=== PATIENT | female | born 1975 | race Caucasian/White ===

== ENCOUNTER → 2019-01-13 | Day surgery (SDC) | payer BC ==
[~2019-01-13] MED LIST: Bupivacaine 0.25%/EPINEPHrine 1:200,000 10 ML SDV ONE; Lactated Ringers 1,000 ML IV SCH; Midazolam 1 MG/ML 2 ML SDV IV ONE; ceFAZolin 1 GM Vial IVPUSH ONE; fentaNYL 100 MCG/2 ML SDV IV ONE
--- NOTE | 2019-01-13 17:01 | OR ---
DATE OF OPERATION: 01/13/2019 PREOPERATIVE DIAGNOSIS: UMBILICAL HERNIA AND 5 CM LIPOMA, ANTERIOR ABDOMINAL WALL, UPPER LEFT QUADRANT. POSTOPERATIVE DIAGNOSIS: UMBILICAL HERNIA AND 5 CM LIPOMA, ANTERIOR ABDOMINAL WALL, UPPER LEFT QUADRANT. SURGEON: Addy Quintero MD PROCEDURE: OPEN REPAIR OF UMBILICAL HERNIA AND EXCISION OF 5 CM LIPOMA, UPPER ABDOMINAL WALL. ANESTHESIA: General. ESTIMATED BLOOD LOSS: Minimum. SPECIMEN: Hernia contents and lipoma. INDICATIONS: This 43-year-old female has a symptomatic umbilical hernia. She also has about a 4-5 cm lump in the left upper quadrant right at the rib costal margin that bothers her. This is benign and is typical of a lipoma. DESCRIPTION OF PROCEDURE: After adequate preparation, a semicircular incision was made inferior to the umbilical hernia location. Incision was carried down through the subcutaneous fascia to the hernia site. The skin of the umbilicus was dissected free off the hernia sac and the hernia sac which contained only preperitoneal fat was then amputated. The hernia defect was closed with interrupted 0 Prolene suture. The wound was then closed with Vicryl for the subcutaneous layer and 4-0 Monocryl for the skin. A transverse incision was then made over the palpable lipoma in the left upper quadrant. This was taken down to the lipoma which easily shelled out of the subcutaneous space. The subcutaneous space was closed with 3-0 Vicryl and 4-0 Vicryl was again used to close the skin. PAYTON/SANTY /[id number]
== END ==
LOC: CC.SDS 08:31
PROVIDERS: ATTEND Surgery
DX: K42.9 Umbilical hernia without obstruction or gangrene (principal); D17.1 Benign lipomatous neoplasm of skin and subcutaneous tissue of trunk
CPT/HCPCS: 36415; 84703; J0690; J2250; J3010; J7120

== ENCOUNTER 2019-01-16 17:41 | Emergency (ER) | payer BC ==
[2019-01-16] MEDS ORDERED: Ketorolac 10 MG Tab PO ONE (17:42)
--- NOTE | 2019-01-16 18:19 | EDM.PDOC ---
ED HPI GENERAL MEDICAL PROBLEM - General Chief Complaint: Lower Extremity Injury/Pain Stated Complaint: "My right knee is swollen" Time Seen by Provider: 01/16/19 18:05 Source of Information: Reports: Patient History Limitations: Reports: No Limitations - History of Present Illness INITIAL COMMENTS - FREE TEXT/NARRATIVE: patient presents to ER with complaints of pain and swelling of right knee. She had an umbilical hernia and lipoma removal on with Dr. Quintero. Had been doing well post op. Was more fatigued yesterday, slept much of the day. This am, noted swelling around her right knee. Was in [place] for a confirmation and pain increased. Tried to walk around the store but the pain worsened. Now feels stiff and swollen and is worried about a blood clot. Has not had any trauma to her knee. Hasn't been kneeling much lately. No real physical exertion or any type of twisting injury to her knee. Has not noted any pain in her calf. No redness or warmth to knee. Onset: Gradual Duration: Hour(s): Location: Reports: Lower Extremity, Left Quality: Reports: Ache Severity: Moderate Improves with: Reports: Rest Worsens with: Reports: Movement Associated Symptoms: Denies: Fever/Chills, Shortness of Breath, Weakness - Related Data Allergies Allergy/AdvReac Type Severity Reaction Status Date / Time No Known Allergies Allergy Verified 01/12/19 16:51 Home Meds: Home Meds . [No Known Home Meds] 01/12/19 [History] Past Medical History Other Musculoskeletal History: Back surgery x3 Social & Family History - Tobacco Use Smoking Status *Q: Never Smoker Second Hand Smoke Exposure: No - Recreational Drug Use Recreational Drug Use: No Review of Systems - Review of Systems Review Of Systems: See Below Constitutional: Denies: Chills, Diaphoresis, Fever Eyes: Reports: No Symptoms Ears: Reports: No Symptoms Nose: Reports: No Symptoms Mouth/Throat: Reports: No Symptoms Respiratory: Denies: Shortness of Breath, Cough Cardiovascular: Denies: Chest Pain, Edema, Irregular Heart Rate GI/Abdominal: Denies: Abdominal Pain, Nausea, Vomiting Genitourinary: Reports: No Symptoms Musculoskeletal: Reports: Leg Pain, Joint Pain, Joint Swelling Skin: Denies: Erythema Neurological: Reports: No Symptoms ED EXAM, GENERAL - Physical Exam Exam: See Below Exam Limited By: No Limitations General Appearance: Alert, WD/WN, No Apparent Distress Nose: Normal Inspection Throat/Mouth: Normal Inspection Head: Normocephalic Neck: Normal Inspection Respiratory/Chest: No Respiratory Distress, Lungs Clear, Normal Breath Sounds Cardiovascular: Regular Rate, Rhythm GI/Abdominal: Normal Bowel Sounds, Soft, Non-Tender Extremities: No Pedal Edema, Joint Swelling (has mild swelling in right knee, no redness or warmth. ), Leg Pain, Limited Range of Motion. No: Increased Warmth, Redness Skin Exam: Warm, Dry Course - Vital Signs Last Recorded V/S: Last Vital Signs Temp 98.2 F 01/16/19 18:06 Pulse 80 01/16/19 18:06 Resp 20 01/16/19 18:06 BP 108/56 L 01/16/19 18:06 Pulse Ox 97 01/16/19 18:06 - Orders/Labs/Meds Labs: Laboratory Tests 01/16/19 Range/Units 18:08 D-Dimer, Quantitative 0.40 (0.00-0.50) Meds: Medications Discontinued Medications Generic Name Dose Route Start Last Admin Trade Name Zanderq PRN Reason Stop Dose Admin Ketorolac Tromethamine 1 packet 01/16/19 18:26 Take Home: Ketorolac 10 Mg, 4 Tab Pack PO 01/16/19 18:27 ONETIME ONE - Re-Assessments/Exams Free Text/Narrative Re-Assessment/Exam: 01/16/19 18:28 D-Dimer negative Departure - Departure Time of Disposition: 18:28 Disposition: Home, Self-Care 01 Condition: Good Clinical Impression: Bursitis of right knee - Discharge Information *PRESCRIPTION DRUG MONITORING PROGRAM REVIEWED*: No *COPY OF PRESCRIPTION DRUG MONITORING REPORT IN PATIENT CHAD: No Forms: ED Department Discharge Additional Instructions: 1. Rest 2. Elevate leg periodically through the day 3. Ice to knee tonight every 2 hours for 20 minutes 4. Keep juni bandage on to help with swelling 5. Toradol 10 mg every 6 hours as needed, may use tylenol for discomfort 6. Follow up if persisting pain, develop redness, increased swelling, warmth or more pain.
[2019-01-16] MEDS ORDERED: Take Home: Ketorolac 10 MG Tab, 4 Tab Pack PO ONE (18:26)
== END 2019-01-16 18:35 | disposition home or self-care (01) ==
LOC: CC.ED 17:41
DX: M71.9 Bursopathy, unspecified (principal)
CPT/HCPCS: 36415; 85379; 99283; A9270-GY